=== PATIENT | male | born 1960 | race Caucasian/White ===

== ENCOUNTER 2021-12-25 07:14 | Day surgery (SDC) | payer MEDICARE ==
[2021-12-18 15:36] LABS: BASOPHILS % (AUTO) 0.3 % (0-1); EOSINOPHILS # (AUTO) 0.1 X10'3 (0-0.9); EOSINOPHILS % (AUTO) 1.1 % (0-6); LYMPHOCYTES # (AUTO) 1.8 X10'3 (1.1-4.8); LYMPHOCYTES % (AUTO) 23.5 % (21-51); MEAN CORPUSCULAR HEMOGLOBIN 31.4 PG (27.0-31.0); MEAN CORPUSCULAR HGB CONC 33.5 g/dL (33.0-36.5); MEAN CORPUSCULAR VOLUME 93.8 FL (78-98); MEAN PLATELET VOLUME 10.4 FL (7.4-10.4); MONOCYTES # (AUTO) 0.5 X10'3 (0-0.9); MONOCYTES % (AUTO) 6.4 % (2-12); NEUTROPHILS # (AUTO) 5.2 X10'3 (1.8-7.7); NEUTROPHILS % (AUTO) 68.7 % (42-75); PRE OP HEMATOCRIT 43.8 % (42.0-52.0); PRE OP HEMOGLOBIN 14.6 g/dL (14.0-17.9); PRE OP PLATELET COUNT 181 X10'3 (140-440); RED BLOOD COUNT 4.66 X10'6 (4.70-6.10); RED CELL DISTRIBUTION WIDTH 12.7 % (11.5-14.5)
[2021-12-18 15:51] LABS: ALBUMIN 4.2 G/DL (3.4-5.0); ALBUMIN/GLOBULIN RATIO 1.4 (1.1-1.5); ALKALINE PHOSPHATASE 76 IU/L (46-116); BLOOD UREA NITROGEN 20 MG/DL (7-18); BUN/CREATININE RATIO 17.9 (5.4-32.0); CALCIUM 8.4 MG/DL (8.5-10.1); CHLORIDE 102 MMOL/L (99-107); CREATININE 1.12 MG/DL (0.60-1.10); PRE OP ALT 27 U/L (30-65); PRE OP ANION GAP 9 (8-16); PRE OP AST 23 U/L (10-37); PRE OP BILIRUB, TOTAL 0.4 MG/DL (0.0-1.0); PRE OP GLUCOSE 112 MG/DL (70-104); PRE OP POTASSIUM 3.9 MMOL/L (3.4-5.1); PRE OP SODIUM 139 MMOL/L (135-145); TOTAL CARBON DIOXIDE 27.8 MMOL/L (24-32); TOTAL PROTEIN 7.3 G/DL (6.4-8.2); eGFR 66 ML/MIN
[~2021-12-25] VITALS: Ht 175.3 cm; Wt 76.2 kg
[2021-12-25] VITALS (7 sets, daily range): BP systolic 130–181; BP diastolic 78–106
[~2021-12-25 07:14] MED LIST: HYDR-3972 PO; METH-603 PO; NORT25CA5 PO; TIZA-205 PO; ceFAZolin inj. 2,000 MG in dextrose 5%-water 100 ML IV ONE; famotidine 20mg tablet PO ONE; ringers solution, lacted 1,000 ML IV SCH
[2021-12-25] MEDS ORDERED: ondansetron/PF 4mg/2ml inj IV PRN (10:50)
[2021-12-25] MEDS ORDERED: proCHLORperazine 10 MG/2 ml inj IV PRN (10:50)
[2021-12-25] MEDS ORDERED: meperidine/PF 25mg/ml syringe IV PRN ×3 (10:50)
[2021-12-25] MEDS ORDERED: morphine 4 MG/ML inj SYRINge IV PRN (10:50)
[2021-12-25] MEDS ORDERED: morphine 2 MG/ML inj. syringe IV PRN (10:50)
[2021-12-25] MEDS ORDERED: ringers solution, lacted 1,000 ML IV SCH (10:50)
[2021-12-25] MEDS ORDERED: BUPIVAcaine/PF 2.5 mg/ml (0.25%) 30ml vial ONE (11:10)
[2021-12-25] MEDS ORDERED: dexamethasone sod phosphate 10mg/ml inj ONE (11:58)
[2021-12-25] MEDS ORDERED: neostigmine methylsulfate 1 MG/ML 10ml vial ONE (11:58)
[2021-12-25] MEDS ORDERED: ondansetron/PF 4mg/2ml inj ONE (11:58)
[2021-12-25] MEDS ORDERED: rocuronium 10mg/ml inj IV ONE (11:58)
[2021-12-25] MEDS ORDERED: sevoflurane 250ml liquid IH ONE (11:58)
[2021-12-25] MEDS ORDERED: glycopyrrolate 0.2mg/ml inj ONE (11:58)
[2021-12-25] MEDS ORDERED: midazolam 1 mg/ML 2ml injection ONE (12:07)
[2021-12-25] MEDS ORDERED: fentaNYL /PF 50mcg/ml 5ml ampule ONE (12:07)
[2021-12-25] MEDS ORDERED: propofol inj 20 ML IV ONE (12:17)
[2021-12-25] MEDS ORDERED: LIDOcaine 2% (20mg/ml) 5ml vial ONE (12:17)
--- NOTE | 2021-12-25 14:05 | NUR ---
Received from OR via [facility] , accompanied by Anesthesiologist TOBY and report given by Anesthesiolgist. PATIENT CAME OUT FROM OR WRITHING IN PAIN. MOANING AND GROANING, WOULD NOT FOLLOW ANY INSTRUCTIONS. MEDICATED FOR PAIN UPON ARRIVAL AND WILL CONTINUE TO ASSESS. Addendum: 12/25/21 at 1419 by Ravi Olmedo RN, RN Amended: Links added.
[2021-12-25] MEDS ORDERED: HYDROcodone/acetaminophen 10/325mg tab PO ONE (14:15)
--- NOTE | 2021-12-25 14:15 | NUR ---
3 LAP SITES THAT ARE CDI TO ABDOMEN. Addendum: 12/25/21 at 1419 by Ravi Olmedo RN, RN Amended: Links added.
--- NOTE | 2021-12-25 15:35 | NUR ---
ALL DISCHARGE CRITERIA HAS BEEN MET. VSS, PAIN AT A TOLERABLE LEVEL, VOIDING AND ABLE TO SAFELY AMBULATE AND TRANSFER SELF. IV TAKEN OUT WITHOUT ANY COMPLICATIONS. ALL DISCHARGE INSTRUCTIONS COVERED WITH PATIENT AND ALL QUESTIONS ANSWERED. PATIENT TAKEN OUT VIA WHEELCHAIR TO PERSONAL VEHICLE WHERE FAMILY/FRIEND DROVE PATIENT HOME. WHILE HYDRATING PATIENT WITH IVF AND PO FLUIDS WE DISCUSSED PROTOCOL FOR INGUINAL HERNIAS AND GOING HOME. PATIENT STATES THAT HE WANTS TO GO HOME DESPITE NOT VOIDING. 42CC OF URINE IN BLADDER VIA BLADDER SCAN. DISCUSSED RISKS OF NOT VOIDING OR CATHETERIZING AND PATIENT STATES "I DO NOT WANT A CATHETER AND I WANT TO GO. " PATIENT UNDERSTANDS THAT IF HE CANNOT VOID BY 9PM TONIGHT THAT HE IS TO GOTO THE ER. PATIENT AGREES TO COMPLY. Addendum: 12/25/21 at 1550 by Ravi Olmedo RN, RN Amended: Links added.
== END 2021-12-25 15:35 | disposition home or self-care (01) ==
LOC: PAS 07:14
PROVIDERS: ATTEND Surgery
DX: K40.90 Unilateral inguinal hernia, without obstruction or gangrene, not specified as recurrent (principal); F12.90 Cannabis use, unspecified, uncomplicated; Z79.899 Other long term (current) drug therapy; Z98.890 Other specified postprocedural states; G89.29 Other chronic pain
CPT/HCPCS: 36415; 49650; 80053; 82948; 85025; 87811; 93005; C1758; C1781; J0690; J1100; J2175; J2250; J2270; J2405; J2704; J2710; J3010; J3490; J7060; J7120; Z7506; Z7508; Z7512; A4215; A4618